=== PATIENT | male | born 1925 ===

== ENCOUNTER 2016-11-22 11:36 | Inpatient (IN) | payer OTHER ==
[~2016-11-22] VITALS: Ht 182.9 cm; Wt 70.5 kg
[2016-11-22] MEDS ORDERED: morphine concentrate SL (11:42)
[2016-11-22] MEDS ORDERED: HYDROCODONE-APA1 TAB PO (11:43)
[2016-11-22 11:49] VITALS: BP 142/71; Ht 182.9 cm; Wt 70.5 kg
--- NOTE | 2016-11-22 13:00 | NUR ---
RECIEVECD TO ROOM 2239 FROM HOME PER DIRECT ADMISSION FROM DR NOBLE FOR HOSPICE CARE PT WITH SHAKILA NOTEDT O HAVE DARK BLOODY URINE BLACK IN APEARANCE. PT DAUGHTER AT SIDE IV SITED TO RIGHT FORARM 22 GA SALINE LOCKED CALL LIGHT IN REACH SIDE RAILS UP X 2 FAMILY AT SIDE. PT ORINETED TO STAFF AND ROOM.
--- NOTE | 2016-11-22 13:58 | NUR ---
JHAVERI CATHETER CHANGED TO [address] FOR CONT. BLADDER IRRIGATION. TOOMY X 3 DONE TO BREAK CLOTS UP. JHAVERI DRAINING LIGHT TINGE BLOODY URINE
[2016-11-22 16:56] VITALS: BP 126/61
[2016-11-22 20:00] VITALS: BP 137/62
[2016-11-23 08:26] VITALS: BP 106/53
[2016-11-23 11:52] VITALS: BP 99/51
[2016-11-23 14:33] VITALS: BP 118/55
--- NOTE | 2016-11-23 16:54 | NUR ---
Nutrition Note: Chart reviewed. Pt is admitted to inpatient hospice care. Pt is currently on a Regular diet. RD available if needed further.
[2016-11-23 22:11] VITALS: BP 120/54
[2016-11-24 02:59] VITALS: BP 115/52
--- NOTE | 2016-11-24 03:56 | NUR ---
PATIENT SLEEPING WITH NO DISTRESS NOTED. IV TO RIGHT FA PATENT WITH NO REDNESS OR SWELLING. JHAVERI TO CONTINUOUS IRRIGATION WITH AMICAR. URINE RED. CALL LIGHT WITHIN REACH.
[2016-11-24 08:47] VITALS: BP 99/46
[2016-11-24 11:58] VITALS: BP 105/52
[2016-11-24 15:11] VITALS: BP 100/53
[2016-11-24 20:30] VITALS: BP 102/51
[2016-11-25 01:00] VITALS: BP 112/52
--- NOTE | 2016-11-25 01:33 | NUR ---
PT IN BED WITH NO NEEDS AT THIS TIME. IV TO RIGHT FOREARM PATENT AND FLUIDS RUNNING PER ORDER. JHAVERI TO CONTINUOUS IRRIGATION. SIDE RAILS ARE UP X 2. BED IS LOW. CALL LIGHT IS IN REACH.
[2016-11-25 05:30] VITALS: BP 101/49
--- NOTE | 2016-11-25 08:30 | NUR ---
HAVE FLUSHED BOTH PORTS OF THE JHAVERI CATHETER AND WORKED WITH IT TO DRAIN NEARLY 700CC OF RED URINE FROM THE BLADDER. [facility]
[2016-11-25 08:39] VITALS: BP 122/56
--- NOTE | 2016-11-25 10:20 | NUR ---
RN BUN MACHINE OPERATOR FLUSHER THE BLADDER AND EVACUATED NUMEROUS SMALL CLOTS. URINE IS AGAIN PATENT TO THE BEDSIDE DRAINAGE BAG.
--- NOTE | 2016-11-25 10:22 | NUR ---
called to room. pt uncomfortable and not draining. salas syringe used to bust up clot-numerous clots noted thru catheter tubing and now draining freely. continuous irrigation continues. family at [facility] [place].
--- NOTE | 2016-11-25 11:29 | NUR ---
BLADDER FLUSH REPLACED. NEW BAG HUNG. THE CATHETER IS PATENT TO THE BEDSIDE DRAINAGE AT THIS TIME. DRAINAGE IS CLEAR. THE URINE HAS BEEN EMPTIED FROM THE CATHETER COLLECTION BAG. IT IS BRIGHT RED WITH CLOTS AND SEDEMENT NOTED. NUMEROUS FAMILY MEMBERS AT THE BEDSIDE. HE CONTINUES TO RATE HIS PAIN A 0.
--- NOTE | 2016-11-25 15:30 | NUR ---
RN TURRET LATHE SET UP OPERATOR FLUSHED THE CATHETER AND EVACUATED SEVERAL SMALL CLOTS. THE URINE IS AGAIN PATENT TO BEDISDE DRAINAGE BAG.
--- NOTE | 2016-11-25 16:20 | NUR ---
BLADDER FLUSH REPLACED. THE URINE REMAINS PATENT TO BEDISDE DRAINAGE.
--- NOTE | 2016-11-25 16:25 | NUR ---
PATIENT GIVEN NORCO FOR PAIN HTAT HE STATES IS IN HIS RIGHT LOWER CHEST WALL AND IN THE PELVIC AREA. IT WAS CRUSHED AND GIVEN IN APPLESAUCE. HE THEN ATE THE REST OF THE APPLE SAUCE.
--- NOTE | 2016-11-25 17:30 | NUR ---
FAMILY IS AWARE THAT THE PATIENT IS TO RECEIVE NECTAR THICKENED LIQUIDS DUE TO EVIDENCE OF ASPIRATION. THEY ARE ALSO GIVING HIS ICE PER REQUEST.
--- NOTE | 2016-11-26 03:47 | NUR ---
PT IN BED WITH NO DISTRESS. SIDE RAILS ARE UP X 2. BED IS IN LOWEST POSITION. CALL LIGHT IS WITHIN REACH.
--- NOTE | 2016-11-26 08:01 | NUR ---
PATIENT IS AWAKE AND ALERT, APPEARS TIRED WITH DROOPY EYES, HIS RESPIRATIONS ARE SHALLOW AND EVEN. HE IS PALE. SITTING UP IN HI FOWLERS WITH ICE IN HIS MOUTH. HIS DAUGHTERS ARE SPOONING IT TO HIM HE DESIRES. HIS FLUSH IS PATENT TO BEDSIDE DRAINAGE AND IS PALE IN COLOR. VERY SMALL CLOTS NOTED IN TUBING. HE DENIES PAIN. ENCOURAGED THE FAMILY TO PLEASE CALL FOR ANY NEEDS.
[2016-11-26 08:55] VITALS: BP 97/44
--- NOTE | 2016-11-26 18:30 | NUR ---
PATIENT'S CONTINUOUS IRRIGATION CONTINUES TO THE JHAVERI CATHETER. THE DRAINAGE IS PALE WITH VERY SMALL CLOTS NOTED FLOATING WITHIN. IT DID BECOME CLOGGED ONCE TODAY AND HAD TO BE FORCEFULLY FLUSHED WITH A DARYL SYRINGE TO BECOME PATENT. HE DID HAVE NURSING STUDENTS TODAY AND FAMILY REQUESTS THAT THEY NOT BE INVOLVED IN HIS CARE TOMORROW. FAMILY IS CURRENLTY RESTING AT HIS BEDSIDE AND IS WITHOUT COMPLAINTS. THEY ARE VERY ATTENTIVE TO HIM AND ASK FOR ASSISTANCE OCCASIONALLY.
--- NOTE | 2016-11-26 20:13 | NUR ---
PRN MORPHINE GIVEN FOR C/O OF BLADDER PAIN 05/05, JOEL WELL, FAMILY AT BEDSIDE, ASSESSMENT COMPLETED, JHAVERI DRAINING TO GRAVITY ALONG WITH FLUSH BAG, NO DISTRESS NOTED, CL IN REACH
[2016-11-26 21:14] VITALS: BP 111/54
--- NOTE | 2016-11-26 22:42 | NUR ---
IV AMICAR HUNG PER DEC ALONG WITH 3000 ML NS IRRIGATION BAG, JOEL WELL, JHAVERI DRAINING WITHOUT DIFFICULTY, FAMILY AT BEDSIDE, CL IN REACH
--- NOTE | 2016-11-27 01:24 | NUR ---
IV AMICLAUDIO MO, JOEL WELL, RESTING WITH EVEN RESP, FAMILY AT BEDSIDE, CL IN REACH
--- NOTE | 2016-11-27 08:02 | NUR ---
PRN MORPHINE 10MG ADMINISTERED AT THIS TIME FOR PAIN 05/05. IRRIGATION CATHETER CLOTTED OFF AT THIS TIME. FLUSHED WITH 360 ML WITH THE RETURN OF 60ML OF CLOT FILLED FLUID. SYRINGE WILL NO LONGER DRAW BLACK CLOT IS STUCK IN THE TUBING. CALLED FOR A REPLACEMENT CATHETER.
[2016-11-27 08:29] VITALS: BP 104/46
--- NOTE | 2016-11-27 09:30 | NUR ---
SPOKE WITH ELDA RN WITH [facility] AND ORDER GIVEN FOR B&O SUPPOSITORY NOW AND CAN REPEAT X2 IF NEEDED.
--- NOTE | 2016-11-27 10:00 | NUR ---
B&O SUPPOSITORY ADMINISTERED AT THIS TIME. JHAVERI CATHETER NOT DRAINING AT THIS TIME. WILL FLUSH AND TRY TO BREAK UP CLOTS.
--- NOTE | 2016-11-27 11:19 | NUR ---
PRN MORPHINE SUBLINGUAL ADMINISTERED AT THIS TIME FOR PAIN 07/06. CATHETER NOT DRAINING INTO DRAINAGE BAG. PT IS EXPERIENCING BLADDER SPASMS, SO FLUID LEAKING AROUND CATHETER SITE WITH CLOTS FOUND IN BEDDING. FULL LINEN CHANGE PERFORMED AND IRRIGATION REMAINS ON. FAMILY AT BEDSIDE. WILL NOTIFY DR YANCEY SO SOMETHING ELSE CAN BE ORDERED FOR PAIN.
--- NOTE | 2016-11-27 12:12 | NUR ---
PROFESSIONAL SERVICES MANAGER INITIATED AT THIS TIME PER DR YANCEY'S ORDER. JHAVERI CATHETER IS NOT DRAINING, BUT INSTRUCTED FAMILY I WOULD MANIPULATE AND FLUSH THE CATHETER ONCE THE MEDICATION HAD TIME TO TAKE EFFECT. PT AND FAMILY VERBALIZED UNDERSTANDING. CALL LIGHT IN REACH, WILL CONTINUE WITH PLAN OF CARE.
--- NOTE | 2016-11-27 13:55 | NUR ---
ATTEMPTED TO IRRIGATE THREE WAY JHAVERI CATHETER WITHOUT SUCCESS. DISCUSSED WITH FAMILY AND PT AND CAME TO THE AGREEMENT THAT CONTINUING TO IRRIGATE THE JHAVERI WAS CAUSING THE PATIENT MORE PAIN THAN COMFORT. FAMILY AND PT VOICED UNDERSTANDING. B&O SUPPOSITORY ADMINISTERED AND PT AND FAMILY DENY FURTHER NEEDS AT THIS TIME. WILL CONTINUE WITH COMFORT MEASURES.
--- NOTE | 2016-11-27 15:16 | NUR ---
PRN OFIRMEV ADMINISTERED FOR TEMPERATURE 103.4. LARGE BLANKETS REMOVED FROM PT AND SHEET COVERING HIM. WET, COOL CLOTH APPLIED TO FOREHEAD AND CHEST. PT IS SOMNOLENT WITH RESPIRATIONS SHALLOW AND UNLABORED. IV REMAINS PATENT TO RIGHT HAND. FAMILY AT BEDSIDE. WILL CONTINUE WITH PLAN OF CARE.
--- NOTE | 2016-11-27 16:35 | NUR ---
TEMPERATURE RE-CHECKED AT THIS TIME AND 98.8 TEMPORALLY. CALL LIGHT IN REACH, FAMILY AT BEDSIDE. STATUS UNCHANGED. WILL CONTINUE WITH PLAN OF CARE.
--- NOTE | 2016-11-27 19:10 | NUR ---
BEDSIDE REPORT RECEIVED AND CARE OF PT ASSUMED. PT LYING IN SUPINE POSITION WITH EYES CLOSED AND LABORED BREATHING. IV IN RIGHT FA PATENT WITH NS INFUSING AT 30 ML / HR, WITH EQUAL OPPORTUNITY SPECIALIST IN USE WITH MORPHINE INFUSING AT 1MG / HR. WILL MONITOR CLOSLEY FOR NEEDS. FAMILY MEMBERS ARE AT BEDSIDE.
[2016-11-27 20:00] VITALS: BP 95/39
--- NOTE | 2016-11-27 22:57 | NUR ---
FAMILY MEMBERS ARE AT BEDSIDE. PT WITH SLOWING RESPIRATIONS. WILL CONTINUE TO MONITOR FOR NEEDS.
--- NOTE | 2016-11-28 01:12 | NUR ---
GAVE 2 MG MORPHINE BOLUS VIA TOP CARRIER PUMP PER FAMILY REQUEST PT GETTING RESTLESS. WILL MONITOR FOR EFFECTIVENESS.
--- NOTE | 2016-11-28 03:15 | NUR ---
PT MOANING AND RESTLESS. GAVE 2 MG BOLUS OF MORPHINE VIA EDUCATIONAL/DEVELOPMENT ASSISTANT PUMP. WILL CONITNUE TO MONITOR CLOSLEY FOR NEEDS.
--- NOTE | 2016-11-28 03:46 | NUR ---
PT RESTLESS AND MOANING. GAVE B & O SUPPOSITORY AND 1 MG ATIVAN PER PRN ORDER. HOSPICE NURSE HERE VISITING WITH FAMILY.
--- NOTE | 2016-11-28 05:02 | NUR ---
ALL NEEDS MET DURING SHIFT. CONTINUE PLAN OF CARE.
--- NOTE | 2016-11-28 07:44 | NUR ---
PATIENTS FAMILY IN ROOM. PATIENT LETHARGIC. NO S/S OF PAIN/DISC/AGGITATION. NORMAL SALINE AT 30CC/HR. RIGHT FOREARM. ASSOCIATE VICE PRESIDENT MORPHINE BOLUSIS
[2016-11-28 08:11] VITALS: BP 86/42
--- NOTE | 2016-11-28 09:04 | NUR ---
B AND O SUPP GIVEN FOR AGGITATION. FAMILY DOES NOT WANT SCHEDULED DUCOLOX SUPP GIVEN
--- NOTE | 2016-11-28 12:48 | NUR ---
QUIET AT PRESENT RESP EVEN FAMILY AT BEDSIDE RESTING QUIETLY AT THIS TIME.
--- NOTE | 2016-11-28 13:37 | NUR ---
FAMILY REMAINS AT BEDSIDE. BREATHING MORE LABORED. PATIENT SHOWS NO S/S OF PAIN/DISCOMFORT AT THIS TIME. PATIENT IS UNRESPONSIVE TO EVEN STIMULA AT THIS TIME
--- NOTE | 2016-11-28 16:20 | NUR ---
PRN ATIVAN GIVEN FOR AGGITATION.
--- NOTE | 2016-11-28 17:10 | NUR ---
PATIENT RESTING WELL. NO AGGITATION NOTED
--- NOTE | 2016-11-28 20:00 | NUR ---
ASSESSMENT PER FLOWSHEET. PT UNRESPOSIVE TO VERBAL OR PAINFUL STIMULI. FAMILY MEMBER AT BEDSIDE. IV PATENT RT FOREARM OF NS AT 30CC'S/HR. SITE CLEAR. APPLE CHECKER OF MORPHINE IN USE WITH SETTINGS AT 1MG/HR CONTINUOUS. JHAVERI TO BS DRAINAGE. SCANT SMOUNT DANITA COLORED. URINE NOTED. NO VERBAL RESPONSE. RESPIRATIONS SHALLOW AND LABORED. O2 OFF AT FAMILY REQUEST.
[2016-11-28 21:00] VITALS: BP 100/42
--- NOTE | 2016-11-28 22:00 | NUR ---
FAMILY REQUESTS NO TURNING AT THIS TIME HOB UP 30 DEGREES.
--- NOTE | 2016-11-29 | NUR ---
CONDITION UNCHANGED AT THIS TIME PT'S SON IN LAW AT BEDSIDE.
--- NOTE | 2016-11-29 03:00 | NUR ---
EYES CLOSED RESPIRATIONS REMAIN LABORED.
--- NOTE | 2016-11-29 05:41 | NUR ---
NO CHANGES IN ASSESSMENT.
--- NOTE | 2016-11-29 07:32 | NUR ---
PT GRIMACING AT THIS TIME, BUT NON RESPONSIVE. GIVEN PRN BOLUS OF MORPHINE 2MG IV AT THIS TIME. ASSESSMENT PERFORMED. PT DENIES WANTING PT POSITIONED. FAMILY REMAINS AT BEDSIDE. CALL LIGHT IN REACH, WILL CONTINUE WITH PLAN OF CARE.
[2016-11-29 08:10] VITALS: BP 84/47
--- NOTE | 2016-11-29 10:25 | NUR ---
PRN MORPHINE 2MG BOLUS ADMINISTERED AT THIS TIME. FAMILY REMAINS AT BEDSIDE. NO CHANGES SINCE INITIAL ASSESSMENT.
--- NOTE | 2016-11-29 12:07 | NUR ---
MOLD BLOWER SYRNGE CHANGED AT THIS TIME D/T EXISTING SYRINGE BEING EMPTY.
--- NOTE | 2016-11-29 14:15 | NUR ---
JHAVERI CARE PROVIDED WITH JHAVERI CATHETER CARE WIPES.
--- NOTE | 2016-11-29 18:00 | NUR ---
STATUS REMAINS UNCHANGED AT THIS TIME. FAMILY REMAINS AT BEDSIDE. WILL CONTINUE WITH PLAN OF CARE.
--- NOTE | 2016-11-30 07:30 | NUR ---
RESTING QUIETLY WITH EYES CLOSED. FAMILY AT BEDSIDE. NO NEEDS NOTED.
--- NOTE | 2016-11-30 09:10 | NUR ---
FAMILY MEMBER CAME AND SAID PATIENT WAS . NO CAROTID PULSES OR HEARTBEAT DETECTED. HOSPICE NOTIFIED. DR. YANCEY PAGED WELL.
--- NOTE | 2016-11-30 09:35 | NUR ---
DR KIRKLAND HERE AND PRONOUNCED THE PATIENT.
--- NOTE | 2016-11-30 10:00 | NUR ---
HOSPICE NURSE HERE AT THIS TIME.
== END 2016-11-30 11:10 | DRG 951 ==
LOC: D.MS 11:36
PROVIDERS: ADMIT Legal Medicine
DX: Z51.5 Encounter for palliative care (principal)